=== PATIENT | female | born 1950 | race Caucasian/White ===

== ENCOUNTER → 2017-01-03 | Outpatient (CLI) | payer MEDICARE ==
--- NOTE | 2017-01-04 13:16 | MM ---
Reason for exam: screening (asymptomatic). Last mammogram was performed 6 months ago. History: Patient is postmenopausal. Family history of breast cancer in maternal grandmother and breast cancer in maternal aunt. Benign MG stereo VAD BX addl LT of the left breast, December 22, 2015. Benign MG stereo VAD BX LT of the left breast, December 22, 2015. Physical Findings: A clinical breast exam by your physician is recommended on an annual basis and results should be correlated with mammographic findings. MG 3D Screening Mammo W/Cad Bilateral CC and MLO view(s) were taken. Prior study comparison: July 05, 2016, left breast MG 3d diag mammo w/cad LT. November 24, 2015, left breast MG work up mamm w CAD LT. November 17, 2015, bilateral MG screening mammo w CAD. The breast tissue is heterogeneously dense. This may lower the sensitivity of mammography. Benign calcifications. Previous mammotome biopsy within the left breast. No significant changes when compared with prior studies. ASSESSMENT: Benign, BI-RAD 2 RECOMMENDATION: Routine screening mammogram of both breasts in 1 year.
== END | disposition home or self-care (01) ==
LOC: RADMAMWWP 13:41
PROVIDERS: ATTEND Internal Medicine Geriatric Medicine
DX: Z12.31 Encounter for screening mammogram for malignant neoplasm of breast (principal)
CPT/HCPCS: 77063; G0202

== ENCOUNTER → 2018-02-27 | Outpatient (CLI) | payer MEDICARE ==
--- NOTE | 2018-02-27 16:22 | BD ---
EXAMINATION TYPE: Axial Bone Density DATE OF EXAM: 02/27/2018 COMPARISON: NONE CLINICAL HISTORY: Height: 65 Weight: 208.1 FRAX RISK QUESTIONS: Alcohol (3 or more units per day): no Family History (Parent hip fracture): no Glucocorticoids (More than 3mos): no (Ex: prednisone, prednisolone, methylprednisolone, dexamethasone, and hydrocortisone). History of Fracture in Adulthood: no Secondary Osteoporosis: 1. Type 1 Diabetes: no 2. Hyperthyroidism: no 3. Menopause before 45: no 4. Malnutrition: no 5. Chronic liver disease: no Rheumatoid Arthritis: no Current Tobacco Use: yes RISK FACTORS HISTORY OF: Family History of Osteoporosis: yes Active: yes Diet low in dairy products/other sources of calcium: no Postmenopausal woman: hysterectomy 10-15 years ago Lost more than 2 inches in height since high school: yes MEDICATIONS: muscle relaxer, norco, vit d Additional History: EXAM MEASUREMENTS: Bone mineral densitometry was performed using the [employer]. Bone mineral density as measured about the Lumbar spine is: ----- L1-L4(G/cm2): 1.282 T Score Values are as follows: ----- L2: -0.7 ----- L3: 2.1 ----- L4: 2.2 ----- L1-L4: 0.8 Bone mineral density has: not changed % since study of: 11.17.2015 Bone mineral density about the R hip (g/cm2): 0.816 Bone mineral density about the L hip (g/cm2): 0.840 T Score values are as follows: -----R Neck: -1.6 -----L Neck: -1.4 -----R Total: -1.2 -----L Total: -0.9 Bone mineral density has: decreased -3.7 % since study of: 11.17.2015 IMPRESSION: Osteopenia (T Score between -2.5 and -1). There is slightly increased risk of fracture and the patient may be considered for treatment. Re-Screen 2-5 years. NOTE: T-SCORE=SD OF THE YOUNG ADULT MEAN.
--- NOTE | 2018-02-28 11:08 | MM ---
Reason for exam: screening (asymptomatic). Last mammogram was performed 1 year and 2 months ago. History: Patient is postmenopausal. Family history of breast cancer in maternal grandmother and breast cancer in maternal aunt. Benign MG stereo VAD BX addl LT of the left breast, December 22, 2015. Benign MG stereo VAD BX LT of the left breast, December 22, 2015. Physical Findings: A clinical breast exam by your physician is recommended on an annual basis and results should be correlated with mammographic findings. MG 3D Screening Mammo W/Cad Bilateral CC and MLO view(s) were taken. XCCL view(s) were taken of the left breast. Prior study comparison: January 03, 2017, bilateral MG 3d screening mammo w/cad. July 05, 2016, left breast MG 3d diag mammo w/cad LT. There are scattered fibroglandular densities. Stable benign calcifications. There is no discrete abnormality. No significant changes when compared with prior studies. ASSESSMENT: Benign, BI-RAD 2 RECOMMENDATION: Routine screening mammogram of both breasts in 1 year.
== END | disposition home or self-care (01) ==
LOC: RADMAMWWP 02-20 06:56
PROVIDERS: ATTEND Internal Medicine Geriatric Medicine
DX: Z12.31 Encounter for screening mammogram for malignant neoplasm of breast (principal); M81.0 Age-related osteoporosis without current pathological fracture; M85.80 Other specified disorders of bone density and structure, unspecified site
CPT/HCPCS: 77063; 77067; 77080

== ENCOUNTER → 2019-04-30 | Outpatient (CLI) | payer MEDICARE ==
--- NOTE | 2019-05-02 13:40 | MM ---
Reason for exam: screening (asymptomatic). Last mammogram was performed 1 year and 2 months ago. History: Patient is postmenopausal. Family history of breast cancer in maternal grandmother and breast cancer in maternal aunt. Benign MG stereo VAD BX addl LT of the left breast, December 22, 2015. Benign MG stereo VAD BX LT of the left breast, December 22, 2015. Physical Findings: A clinical breast exam by your physician is recommended on an annual basis and results should be correlated with mammographic findings. MG 3D Screening Mammo W/Cad Bilateral CC, MLO, and XCCL view(s) were taken. Prior study comparison: February 27, 2018, bilateral MG 3d screening mammo w/cad. January 03, 2017, bilateral MG 3d screening mammo w/cad. Finding: There are fine, grouped/clustered calcifications in the lower inner quadrant, middle position of the right breast 10cm from the nipple. New finding since February 27, 2018 and January 03, 2017. ASSESSMENT: Incomplete: need additional imaging evaluation, BI-RAD 0 RECOMMENDATION: Special view mammogram of the right breast. [facility] will attempt to contact patient to return for supplemental views.
== END | disposition home or self-care (01) ==
LOC: RADMAMWWP 13:52
PROVIDERS: ATTEND Internal Medicine Geriatric Medicine
DX: Z12.31 Encounter for screening mammogram for malignant neoplasm of breast (principal)
CPT/HCPCS: 77063; 77067

== ENCOUNTER → 2019-05-21 | Outpatient (CLI) | payer MEDICARE ==
--- NOTE | 2019-05-21 12:02 | MM ---
Reason for exam: additional evaluation requested from abnormal screening. Last mammogram was performed 1 month ago. History: Patient is postmenopausal. Family history of breast cancer in maternal grandmother and breast cancer in maternal aunt. Benign MG stereo VAD BX addl LT of the left breast, December 22, 2015. Benign MG stereo VAD BX LT of the left breast, December 22, 2015. Physical Findings: Nurse did not find any significant physical abnormalities on exam. MG 3D Work Up W/Cad RT CC with magnification, ML with magnification, and ML view(s) were taken of the right breast. Prior study comparison: April 30, 2019, bilateral MG 3d screening mammo w/cad. February 27, 2018, bilateral MG 3d screening mammo w/cad. Finding: There are two groups of suspicious, fine calcifications in the lower inner quadrant of the right breast. One of these may be associated with vessels. New finding since April 30, 2019 and February 27, 2018. These results were verbally communicated with the patient and result sheet given to the patient on 05/21/19. ASSESSMENT: Suspicious, BI-RAD 4 RECOMMENDATION: Stereotactic core biopsy of the right breast. (right breast calcifications 11cm from the nipple) Called Dr. Grant's office with mammographic findings and has scheduled an appointment for the patient for 07/16/19 at 4:[address] Seymour. Biopsy scheduled for 06/20/19 at 10:20. PRELIMINARY REPORT CALLED AND FAXED TO DR. SEYMOUR ON 05/21/19.
== END | disposition home or self-care (01) ==
LOC: RADMAMWWP 08:56
PROVIDERS: ATTEND Internal Medicine Geriatric Medicine
DX: R92.8 Other abnormal and inconclusive findings on diagnostic imaging of breast (principal)
CPT/HCPCS: 77065; G0279; 77061

== ENCOUNTER → 2019-06-20 | Day surgery (SDC) | payer MEDICARE ==
[2019-06-20 09:40] VITALS: RESP 16; TEMP 98.2; BMI 30.5
[2019-06-20 11:42] VITALS: BP 123/76; PULSE 61
--- NOTE | 2019-06-20 11:43 | MM ---
EXAMINATION TYPE: MG stereo VAD BX RT DATE OF EXAM: 06/20/2019 COMPARISON: Diagnostic right breast mammogram dated 05/21/2019 and prior mammograms dating back to 07/05/2016 CLINICAL HISTORY: Indeterminate right breast calcifications. TECHNIQUE: Stereotactic guided core biopsy of right breast. FINDINGS: The procedure of stereotactic guided core biopsy was explained to the patient. Benefits, alternatives, and risks were discussed. An informed consent was then obtained. Preprocedural timeout was performed. The shortness pathway for biopsy was chosen. Shortness pathway was medial to lateral approach. Preprocedural localization images were obtained and a 3 mm group of calcifications within the upper central right breast was demonstrated. Coordinates were calculated. Subsequently 10 cc of lidocaine without epinephrine was utilized to anesthetize the skin and deeper subcutaneous soft tissues. The needle was advanced to the appropriate depth. Prefire images were obtained ensuring appropriate location. Postfire injection of 10 cc of lidocaine with epinephrine was utilized to anesthetize the site of biopsy. A vacuum assisted biopsy gun was used to obtain 7 core samples. Biopsy marker was subsequently placed. The patient tolerated the procedure well without any immediate complication. The patient was kept in the radiology department for short stay after the procedure and then discharged home in stable condition. Targeted calcifications are identified in specimen mammogram. Post biopsy mammogram shows the clip to appear in satisfactory position relative to the targeted area of concern on the preprocedure images. IMPRESSION: SUCCESSFUL, UNCOMPLICATED STEREOTACTIC GUIDED CORE BIOPSY OF A 4 MM GROUP OF CALCIFICATIONS IN THE LOWER INNER QUADRANT OF THE RIGHT BREAST, FULL PATHOLOGY RESULTS TO FOLLOW. OF NOTE THERE IS AN ADDITIONAL 2 MM GROUP OF CALCIFICATIONS IN THE UPPER, POSSIBLY INNER RIGHT BREAST THAT WERE NOT WELL-DEFINED ON PRIOR DIAGNOSTIC MAMMOGRAPHY. SIX-MONTH FOLLOW-UP RIGHT BREAST MAMMOGRAM WOULD BE RECOMMENDED PENDING RESULTS OF THE ABOVE PERFORMED BIOPSY. Pathology Results: Benign RIGHT BREAST, STEREOTACTIC CORE BIOPSY: Fibroadenomatoid hyperplasia with calcifications in a background of fibrocystic changes. Recommendation Follow up mammogram of the right breast in 6 months. ABHINAV
== END ==
LOC: RADMAMWWP 09:17
PROVIDERS: ATTEND Surgery
DX: N60.21 Fibroadenosis of right breast (principal); N60.11 Diffuse cystic mastopathy of right breast
CPT/HCPCS: 88305; 19081; J2001

== ENCOUNTER → 2019-12-22 | Outpatient (CLI) | payer MEDICARE ==
--- NOTE | 2019-12-23 08:05 | MM ---
Reason for exam: follow-up at short interval from prior study. Last mammogram was performed 7 months ago. History: Patient is postmenopausal. Family history of breast cancer in maternal grandmother and breast cancer in maternal aunt. Benign MG stereo VAD BX RT of the right breast, June 20, 2019. Benign MG stereo VAD BX addl LT of the left breast, December 22, 2015. Benign MG stereo VAD BX LT of the left breast, December 22, 2015. Physical Findings: Patient refused breast exam. MG 3D Diag Mammo W/Cad RT CC and MLO view(s) were taken of the right breast. Prior study comparison: May 21, 2019, right breast MG 3d work up w/cad RT. April 30, 2019, bilateral MG 3d screening mammo w/cad. There are scattered fibroglandular densities. Stable benign calcifications. Previous mammotome biopsy in the right breast. There is no discrete abnormality including area of concern. No significant new findings when compared with previous films. These results were verbally communicated with the patient and result sheet given to the patient on 12/22/19. ASSESSMENT: Benign, BI-RAD 2 RECOMMENDATION: Return to routine screening mammogram schedule for both breasts.
== END | disposition home or self-care (01) ==
LOC: RADMAMWWP 14:28
PROVIDERS: ATTEND Surgery
DX: R92.8 Other abnormal and inconclusive findings on diagnostic imaging of breast (principal)
CPT/HCPCS: 77065; G0279; 77061

== ENCOUNTER → 2020-08-19 | Outpatient (CLI) | payer MEDICARE ==
--- NOTE | 2020-08-19 10:01 | BD ---
EXAMINATION TYPE: Axial Bone Density DATE OF EXAM: 08/19/2020 COMPARISON: 02.27.2018 CLINICAL HISTORY: 69 YR OLD FEMALE......ICD-10 CODE: M81.0 KNOWN, OSTEOPOROSIS Height: 64.8 Weight: 206 FRAX RISK QUESTIONS: Current Tobacco Use: YES RISK FACTORS HISTORY OF: Postmenopausal woman: YES, AT AGE 49 YRS OLD, TOTAL HYST Lost more than 2 inches in height since high school: YES Hyperparathyroidism: NO Adrenal Insufficiency: NO MEDICATIONS: Additional Medications: VIT D, MUSCLE RELAXERS , NSAIDS Additional History: OSTEO ARTHRITIS, EXAM MEASUREMENTS: Bone mineral densitometry was performed using the [employer] System. Bone mineral density as measured about the Lumbar spine is: ----- L1-L4(G/cm2): 1.333 T Score Values are as follows: ----- L1: -0.1 ----- L2: 0.3 ----- L3: 1.9 ----- L4: 2.8 ----- L1-L4: 1.3 Bone mineral density has: Increased 3.8% since study of: 02.27.2018 Bone mineral density about the R hip (g/cm2): 0.831 Bone mineral density about the L hip (g/cm2): 0.852 T Score values are as follows: -----R Neck: -1.3 -----L Neck: -1.6 -----R Total: -1.4 -----L Total: -1.2 Bone mineral density has: Decreased -2.6% since study of: 02.27.2018 FRAX%s: THERE IS A 9.7% CHANCE FOR A MAJOR OSTEOPOROTIC FX AND A 2.3% FOR HIP.......PROBABILITY FO R FX IN 10 YRS TIME IMPRESSION: Osteopenia (T Score between -2.5 and -1) remains present. There remains slightly increased risk of fracture and the patient may be considered for treatment. Re-Screen 2-5 years. NOTE: T-SCORE=SD OF THE YOUNG ADULT MEAN.
== END | disposition home or self-care (01) ==
LOC: RADBDWWP 07:53
PROVIDERS: ATTEND Internal Medicine Geriatric Medicine
DX: M85.88 Other specified disorders of bone density and structure, other site (principal)
CPT/HCPCS: 77080

== ENCOUNTER → 2020-08-24 | Outpatient (CLI) | payer MEDICARE ==
--- NOTE | 2020-08-25 11:28 | MM ---
Reason for exam: screening (asymptomatic). Last mammogram was performed 8 months ago. History: Patient is postmenopausal. Family history of breast cancer in maternal grandmother and breast cancer in maternal aunt. Benign MG stereo VAD BX RT of the right breast, June 20, 2019. Benign MG stereo VAD BX addl LT of the left breast, December 22, 2015. Benign MG stereo VAD BX LT of the left breast, December 22, 2015. Physical Findings: A clinical breast exam by your physician is recommended on an annual basis and results should be correlated with mammographic findings. MG 3D Screening Mammo W/Cad Bilateral CC and MLO view(s) were taken. Prior study comparison: December 22, 2019, right breast MG 3d diag mammo w/cad RT. May 21, 2019, right breast MG 3d work up w/cad RT. The breast tissue is heterogeneously dense. This may lower the sensitivity of mammography. There are benign appearing round, dystrophic calcifications bilaterally. Previous mammotome biopsy in the right breast and in the left breast x 2. There is no discrete abnormality. ASSESSMENT: Benign, BI-RAD 2 RECOMMENDATION: Routine screening mammogram of both breasts in 1 year.
== END | disposition home or self-care (01) ==
LOC: RADMAMWWP 07:41
PROVIDERS: ATTEND Internal Medicine Geriatric Medicine
DX: Z12.31 Encounter for screening mammogram for malignant neoplasm of breast (principal)
CPT/HCPCS: 77063; 77067

== ENCOUNTER → 2021-09-09 | Outpatient (CLI) | payer MEDICARE ==
--- NOTE | 2021-09-13 09:15 | MM ---
Reason for exam: screening (asymptomatic). Last mammogram was performed 1 year and 1 month ago. History: Patient is postmenopausal. Family history of breast cancer in maternal grandmother and breast cancer in maternal aunt. Benign MG stereo VAD BX RT of the right breast, June 20, 2019. Benign MG stereo VAD BX addl LT of the left breast, December 22, 2015. Benign MG stereo VAD BX LT of the left breast, December 22, 2015. Physical Findings: A clinical breast exam by your physician is recommended on an annual basis and results should be correlated with mammographic findings. MG 3D Screening Mammo W/Cad Bilateral CC, MLO, and XCCL view(s) were taken. Prior study comparison: August 24, 2020, bilateral MG 3d screening mammo w/cad. December 22, 2019, right breast MG 3d diag mammo w/cad RT. There are scattered fibroglandular densities. Previous mammotome biopsy in the left breast x 2. There is chronic nodularity in the superior left MLO view. Benign bilateral oil cyst calcifications. No significant changes when compared with prior studies. ASSESSMENT: Benign, BI-RAD 2 RECOMMENDATION: Routine screening mammogram of both breasts in 1 year.
== END | disposition home or self-care (01) ==
LOC: RADMAMWWP 12:53
PROVIDERS: ATTEND Internal Medicine Geriatric Medicine
DX: Z12.31 Encounter for screening mammogram for malignant neoplasm of breast (principal); Z78.0 Asymptomatic menopausal state; Z80.3 Family history of malignant neoplasm of breast
CPT/HCPCS: 77063; 77067